=== PATIENT | female | born 1970 | race Caucasian/White ===

== ENCOUNTER 2023-07-06 17:22 | Observation (INO) | payer BC ==
[2023-07-06 18:33] LABS: #Monocytes 0.8 thou/uL (0.11-0.59); #Neutrophils 7.9 thou/uL (1.40-6.50); %Basophils 0.1 % (0.0-1.0); %Lymphocytes 13.7 % (21.0-51.0); %Monocytes 7.5 % (0.0-10.0); Hematocrit 46.2 % (36.0-47.0); Hemoglobin 15.6 g/dL (12.0-16.0); Mean Corpuscular HGB CONC 33.8 g/dL (32.0-36.0); Mean Corpuscular Hemoglobin 30.3 pg (27.0-31.0); Mean Corpuscular Volume 89.7 fl (78.0-98.0); Mean Platelet Volume 10.8 fL (7.4-10.4); Platelet Count 177 10x3/uL (130-400); RBC Distribution Width 13.9 % (11.5-14.5); Red Blood Cell (RBC) Count 5.15 mill/uL (4.20-5.40); White Blood Cell (WBC) Count 10.1 10x3/uL (4.8-10.8)
[2023-07-06 18:57] LABS: ALT (SGPT) 13 U/L (8-55); AST (SGOT) 12 U/L (5-34); Albumin 4.4 g/dL (3.5-5.0); Alkaline Phosphatase 70 U/L (40-110); Anion Gap 16 mmol/L (10-20); BUN (Urea Nitrogen) 12 mg/dL (9.8-20.1); Bilirubin, Total 0.8 mg/dL (0.2-1.2); Calc. Creatinine Clearance 0 mL/min (70-130); Calcium 9.4 mg/dL (7.8-10.44); Carbon Dioxide 28 mmol/L (22-29); Chloride 101 mmol/L (98-107); Estimated GFR 88; Globulin 2.8 g/dL (2.4-3.5); Glucose 99 mg/dL (70-105); Potassium 3.4 mmol/L (3.5-5.1); Protein, Total 7.2 g/dL (6.0-8.3); Sodium 142 mmol/L (136-145)
[2023-07-06 19:01] LABS: Bilirubin Moderate (Negative); Blood, Urine Negative (Negative); Glucose, Urine (Dipstick) Negative (Negative); Ketone, Urine 40 mg/dL (Negative); Leukocyte Negative (Negative); Nitrite Negative (Negative); Protein, Urine (Dipstick) 100 mg/dL (Neg-Trace); Urobilinogen 0.2 mg/dL (Less than 2)
[2023-07-06 19:02] LABS: Clarity Clear (Clear); Specific Gravity, Urine 1.028 (1.002-1.036)
[2023-07-06 19:07] LABS: Bacteria/HPF 2+ HPF (None Seen); CAUTI Indications for Culture Dysuria,urgency,freq; RBC/HPF 0-3 HPF (0-3)
[2023-07-06] MEDS ORDERED: Cefepime 2 GM VIAL ONE (19:07)
[2023-07-06 19:08] LABS: Urine Culture Reflex No No
[2023-07-06] MEDS ORDERED: Vancomycin 1 GM/200 ML (FROZEN) BAG ONE (20:30)
[2023-07-06] MEDS ORDERED: Ondansetron ODT 4 MG TAB PO PRN (21:54)
[2023-07-06] MEDS ORDERED: HYDROcodone/Acetaminophen 5/325 mg Tablet PO PRN (21:54)
[2023-07-06] MEDS ORDERED: Acetaminophen 325 MG TAB PO PRN (21:54)
[2023-07-06] MEDS ORDERED: Calcium Carbonate 500 MG ChewTAB PO PRN (21:54)
[2023-07-06] MEDS ORDERED: Electrolyte Replacement Protocol 1 EACH FS SCH (21:56)
[2023-07-06] MEDS ORDERED: Potassium Chloride 20 MEQ TAB PO SCH (23:45)
[2023-07-06 23:55] VITALS: BMI 57.2
[2023-07-07] MEDS ORDERED: Vancomycin (BATCH) 1.5 GM 1.5 GM in Premix Bag 1 BAG IVPB SCH (01:15)
[2023-07-07 04:57] LABS: #Monocytes 0.9 thou/uL (0.11-0.59); #Neutrophils 7.4 thou/uL (1.40-6.50); %Basophils 0.2 % (0.0-1.0); %Lymphocytes 14.5 % (21.0-51.0); %Monocytes 9.1 % (0.0-10.0); %Neutrophils 75.4 % (42.0-75.0); Hematocrit 40.4 % (36.0-47.0); Hemoglobin 13.4 g/dL (12.0-16.0); Mean Corpuscular HGB CONC 33.2 g/dL (32.0-36.0); Mean Corpuscular Hemoglobin 29.8 pg (27.0-31.0); Mean Corpuscular Volume 89.8 fl (78.0-98.0); Mean Platelet Volume 11.1 fL (7.4-10.4); Platelet Count 174 10x3/uL (130-400); RBC Distribution Width 13.9 % (11.5-14.5); White Blood Cell (WBC) Count 9.8 10x3/uL (4.8-10.8)
[2023-07-07 06:51] LABS: Anion Gap 15 mmol/L (10-20); BUN (Urea Nitrogen) 12 mg/dL (9.8-20.1); Calc. Creatinine Clearance 212 mL/min (70-130); Calcium 8.6 mg/dL (7.8-10.44); Carbon Dioxide 26 mmol/L (22-29); Chloride 103 mmol/L (98-107); Estimated GFR 103; Glucose 97 mg/dL (70-105); Potassium 3.8 mmol/L (3.5-5.1); Sodium 140 mmol/L (136-145)
[2023-07-07] MEDS ORDERED: Famotidine 20 MG TAB PO SCH (09:00)
[2023-07-07 11:59] VITALS: BP 102/64; TEMP 98.2
[2023-07-07] MEDS: VANCOMYCIN IVPB SCH ×2 (13:56→14:49)
[2023-07-10] MEDS ORDERED: FLU VACC QS2023-24(6MOS UP)/PF 60 MCG/0.5 ML SYRINGE IM ONE (09:00)
== END 2023-07-07 15:46 | disposition home or self-care (01) ==
LOC: ERS 17:22 → T4-B 21:44
PROVIDERS: ADMIT Student in an Organized Health Care Education/Training Program; ATTEND Internal Medicine
DX: M79.671 Pain in right foot (principal); E66.01 Morbid (severe) obesity due to excess calories; F41.9 Anxiety disorder, unspecified; J45.909 Unspecified asthma, uncomplicated; E28.2 Polycystic ovarian syndrome; L03.115 Cellulitis of right lower limb; E87.6 Hypokalemia; Z96.82 Presence of neurostimulator; Z68.41 Body mass index [BMI] 40.0-44.9, adult; Z79.899 Other long term (current) drug therapy
CPT/HCPCS: 80048; 80053; 81001; 83605; 85025; 87040; 96365; 96366; 96367; 96372; 96376; G0378; J0692; J1650; J3370; J3370-JW